=== PATIENT | male | born 1945 ===

== ENCOUNTER 2018-06-12 11:18 | Outpatient (CLI) | payer MEDICARE | END 2018-06-12 11:19 | disposition home or self-care (01) | LOC: C.LAB 11:18 | DX: I49.9 Cardiac arrhythmia, unspecified (principal); I50.9 Heart failure, unspecified; I25.5 Ischemic cardiomyopathy ==

== ENCOUNTER 2018-07-31 07:39 | Outpatient (CLI) | payer MEDICARE | END 2018-07-31 07:40 | disposition home or self-care (01) | LOC: C.LAB 07:39 | DX: I49.9 Cardiac arrhythmia, unspecified (principal); I50.9 Heart failure, unspecified; I25.5 Ischemic cardiomyopathy ==

== ENCOUNTER 2018-08-13 07:58 | Outpatient (CLI) | payer MEDICARE | END 2018-08-13 07:59 | disposition home or self-care (01) | LOC: C.LAB 07:58 | DX: I49.9 Cardiac arrhythmia, unspecified (principal); I50.9 Heart failure, unspecified; I25.5 Ischemic cardiomyopathy ==

== ENCOUNTER 2018-09-06 06:58 | Outpatient (CLI) | payer MEDICARE | END 2018-09-06 06:59 | disposition home or self-care (01) | LOC: C.CARD 06:58 | DX: I25.5 Ischemic cardiomyopathy (principal); I10 Essential (primary) hypertension; R73.01 Impaired fasting glucose ==

== ENCOUNTER 2018-09-26 09:28 | Outpatient (CLI) | payer MEDICARE | END 2018-09-26 09:29 | disposition home or self-care (01) | LOC: C.LAB 09:28 | DX: I25.5 Ischemic cardiomyopathy (principal) ==

== ENCOUNTER 2018-10-16 07:26 | Outpatient (CLI) | payer MEDICARE | END 2018-10-16 07:27 | disposition home or self-care (01) | LOC: C.LAB 07:26 | DX: I25.5 Ischemic cardiomyopathy (principal) ==